=== PATIENT | male | born 1960 | race Caucasian/White ===

== ENCOUNTER → 2025-03-26 08:29 | Outpatient (REF) | payer BC, SELFPAY | LOC: RAD 08:29 | PROVIDERS: ATTENDING PHYSICIAN Surgery Vascular Surgery; FAMILY PHYSICIAN Internal Medicine | DX: I65.23 Occlusion and stenosis of bilateral carotid arteries (principal) | CPT/HCPCS: 70496; 70498; Q9967 ==

== ENCOUNTER 2025-05-11 06:44 | Inpatient (IN) | payer BC, SELFPAY ==
[2025-04-29 09:26] VITALS: BMI 22.5
[2025-04-29 09:38] LABS: Hematocrit 42.5 % (39.0-52.0); Hemoglobin 14.7 g/dL (13.0-18.0); Mean Corp Hgb Conc. 34.6 g/dL (33.0-37.0); Mean Corpuscular Volume 85.2 fL (80.0-94.0); Nucleated Red Blood Cells % 0 % (-); Platelet Count 293 10^3/uL (130-400); Red Cell Dist. Width 12.5 % (11.5-14.5)
[2025-04-29 09:44] LABS: INR 1.09; PT 14.6 Sec (11.4-14.6)
[2025-04-29 09:45] LABS: APTT 28.5 Sec (23.4-35.0)
[2025-04-29 10:02] LABS: Blood Urea Nitrogen 17 mg/dl (9-20); Calcium 9.4 mg/dl (8.4-10.2); Carbon Dioxide 28 mmol/L (22-30); Chloride 96 mmol/L (98-107); Estimated Creatinine Clearance 84 ml/min; Glucose 106 mg/dl (70-99); Potassium 4.6 mmol/L (3.5-5.1); Sodium 129 mmol/L (135-145); eGFR > 60.00
--- NOTE | 2025-05-05 14:36 | PTCARENOTE ---
Roshni in Dr. Floyd's office made aware of Sodium 129.
--- NOTE | 2025-05-06 16:17 | PTCARENOTE ---
Abn Na+, Dr. Vargas notified, no additional instructions received.
[2025-05-11] VITALS (7 sets, daily range): BP systolic 83–142; BP diastolic 50–79; BMI 23.1
[2025-05-11] MEDS: NSS 500 IV (07:20)
[2025-05-11] MEDS: BACTROBAN NASAL 1 GRAM NASAL (07:20)
[2025-05-11] MEDS: PERIDEX 0.12% ORAL RINSE 15 ML PO (07:21)
--- NOTE | 2025-05-11 08:45 | W.SUR.PREOP ---
Pre-Operative Surgical Note
-
I have examined this patient prior to the performance of the scheduled procedure.
The patient's condition is unchanged from the time of the current History and
Physical and the patient is able to undergo the scheduled procedure.
[2025-05-11 09:56] LABS: ACT-LR - POC 287 Seconds (116-155)
--- NOTE | 2025-05-11 10:42 | CON.INTV ---
Consultation
Consultation Request
Date/Time Consultation Requested: 05/11/2025 - 101
Date/Time Consultation Performed: 05/11/2025 - 1035
Requesting Provider: RINA Morillo
Performing Provider: Dr. Love
Reason for Consultation: R-CEA
Medical History
-
Chief Complaint: Elective right carotid endarterectomy
History of Present Illness:
64-year-old male active cigarette smoker with a past medical history of bilateral carotid artery stenosis who presents for elective right carotid endarterectomy. Patient known to vascular surgery service, with last visit on 04/11/2025 with
[place]. Recent CTA head/neck on 03/2025 showed high-grade stenosis within the right carotid bulb with >90% stenosis, and approximate 50% stenosis involving the origin of the left common carotid artery with prominent mediastinal lymph nodes.
Surgical intervention was discussed and the patient agreed to carotid endarterectomy. Today, patient underwent right carotid endarterectomy with patch angioplasty using bovine pericardium. There were no immediate complications, and he was
transferred to the ICU postoperatively for further care, with Napper Runner services consulted for additional management/recommendations.
PMHx: Bilateral carotid artery stenosis, hypertension, hyperlipidemia, anxiety, Bracken's disease
PSHx: Left shoulder surgery
Past Medical History
Past Medical History: Other (Above as per HPI)
Past Surgical History: Other (Above as per HPI)
Social History
Tobacco: Smoker (Smokes 0.5 PPD; started smoking at age 18)
Alcohol: None
Drug: None
Family History
Family History: Hypertension (Father + mother)
Allergies / Home Medications
Allergies
Allergy/AdvReac Type Severity Reaction Status Date / Time
hydromorphone (From Dilaudid) Allergy Unknown Rash Verified 05/11/25 14:20
Home Medications
�Medication �Instructions �Recorded �Confirmed �Last Taken �Type
Vitamin C 1 dose PO DAILY Supplement 04/27/25 05/11/25 05/10/25 08:00 History
Vitamin D (with calcium) 1 dose PO DAILY Supplement 04/27/25 05/11/25 05/10/25 08:00 History
aspirin 81 mg tablet 81 mg PO HS Blood Clot 04/27/25 05/11/25 05/09/25 22:00 History
Prevention/Tx
atorvastatin 40 mg tablet 40 mg PO HS High Cholesterol 04/27/25 05/11/25 05/10/25 22:00 History
buspirone 10 mg tablet 10 mg PO BID Mental Health/Anxiety 04/27/25 05/11/25 05/11/25 06:00 History
carvedilol 12.5 mg tablet 12.5 mg PO BID Heart 04/27/25 05/11/25 05/11/25 06:00 History
Disease/Condition
omeprazole 20 mg tablet,delayed 20 mg PO HS Gastrointestinal Issue 04/27/25 05/11/25 05/10/25 22:00 History
release
losartan 100 1 tab PO HS Blood Pressure 05/11/25 05/11/25 05/10/25 22:00 History
mg-hydrochlorothiazide 25 mg tablet
Review of Systems
-
History Source: Patient
All other systems: Negative unless noted
Vitals / Labs / Diagnostic Testing
Vital Signs
Temp Pulse Resp BP Pulse Ox
98 F 58 15 96/50 91
05/11/25 15:53 05/11/25 15:00 05/11/25 15:00 05/11/25 12:30 05/11/25 14:45
Lab Data
05/11/25 13:37
05/11/25 13:37
Laboratory Results
05/11/25
13:37
PT 16.0 H
INR 1.26
APTT 29.6
Diagnostic Testing:
Physical Exam
-
HEENT: Normocephalic, Anicteric and Other (Incision on right neck, closed with no purulence or exsanguination)
Cardiovascular: S1/S2 and Peripheral Edema (negative)
Respiratory: Clear, Wheeze (negative), Rales (negative) and Non-Labored Respirations
GI: Soft, Non Distended, Non Tender and Normal Bowel Sounds
Neurology: Awake, Alert and Tremors (negative)
Skin: Warm and Dry
General: Respiratory Distress (negative), Comfortable, Fever (negative) and Chills (negative)
Assessment
-
Assessment: 64-year-old male active cigarette smoker with a past medical history of bilateral carotid artery stenosis who presents for elective right carotid endarterectomy. Patient known to vascular surgery service, with last visit on 04/11/[address] Floyd. Recent CTA head/neck on 03/2025 showed high-grade stenosis within the right carotid bulb with >90% stenosis, and approximate 50% stenosis involving the origin of the left common carotid artery with prominent mediastinal lymph nodes.
Surgical intervention was discussed and the patient agreed to carotid endarterectomy. On 05/11/2025, patient underwent right carotid endarterectomy with patch angioplasty using bovine pericardium. There were no immediate complications, and he was
transferred to the ICU postoperatively for further care, with Napper Runner services consulted for additional management/recommendations.
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
Impression:
#High-grade asymptomatic right carotid artery stenosis s/p right carotid endarterectomy with patch angioplasty using bovine pericardium (POD #0)
#Mediastinal lymphadenopathy
#Leukocytosis (suspect reactive due to operation above)
#Chronic hyponatremia (sodium was 129 earlier this month on 04/29/2025; was 125 on 03/24/2025)
#Active tobacco smoker with >02-gpbi-jhrw history
#Mild paraseptal + centrilobular emphysema due to tobacco use
Plan:
Postoperative surgical intensive care unit monitoring
Supplemental oxygen as needed to maintain SpO2 >90-94%
prn nebulized bronchodilators
Incentive spirometry encouraged 10x per hour for at least 4 hrs a day
Aspiration precautions
Pain control
Neuro and vascular checks per protocol
Maintain MAP>65
Replete electrolytes with K>4, Mg>2
Maintain euglycemia with goal BG 140-180; check A1C
Vascular surgery following-correspondence and operative notes reviewed
Transfuse blood products as needed to keep Hb>7g/dL, and plt>50k (given post-operative status)
Patient has prominent mediastinal lymph nodes with unknown etiology. Suspect this is reactive. Recommend repeating CT chest with IV contrast as an outpatient to assess for persistence; may need EBUS-FNA if nodes increase in size
Also, given his age, >12-krir-tmli history and continued active cigarette use, he qualifies for annual LDCT chest imaging. This can be discussed as an outpatient.
Recommend outpatient pulmonary office follow-up, to discuss his enlarged mediastinal lymph nodes, discussed repeat imaging, to discuss his smoking use with lung cancer screening with annual LDCT chest, and to obtain PFTs to evaluate for obstructive
lung defect
DVT prophylaxis: HSQ
Early nutrition
Early mobilization
Critical care statement: A total of 39 minutes of critical care time was provided for this patient today. This includes management of unstable vital signs, evaluation of the patient at bedside, reviewing the patient's pertinent medical records
including radiographs, microbiology, laboratory evaluations, and discussion with primary team, consultants, pharmacy, nutrition, physical therapy, case management, charge nurse, critical care nursing, and respiratory therapy.
Data:
CT angio head & neck with/without IV contrast 03/26/2025:
1. High-grade stenosis within the right carotid bulb, measurements consistent with greater than 90% stenosis, best appreciated on sagittal images 23 and 24. Right internal carotid artery appears to remain patent.
2. Mild stenosis at the origin of the left common carotid artery, approximately 50%. Calcified left carotid bulb plaque, measurements consistent with approximately 50% stenosis.
3. Prominent mediastinal lymph nodes, measuring up to 1.3 cm in short axis dimension, of unknown etiology. Consider contrast-enhanced CT chest to evaluate for additional thoracic lymphadenopathy.
[2025-05-11 10:45] LABS: ACT-LR - POC 211 Seconds (116-155)
--- NOTE | 2025-05-11 11:01 | OR.RPT ---
Operative Report
Operative Report
Date of Operation: 05/11/2025
Pre Op Diagnosis: High-grade asymptomatic right carotid artery stenosis
Post Op Diagnosis: High-grade asymptomatic right carotid artery stenosis
Procedure: RIGHT carotid endarterectomy with patch angioplasty using bovine pericardium
Surgeon: Liban Floyd III, MD
Analysis Engineer: Leilani Holder MD PGY2
Anesthesia: General
Complications: None
History and Indications for Procedure: 64-year-old male with asymptomatic high-grade right carotid artery stenosis
Procedure in Detail: Mark Carr was correctly identified and placed supine on the operating table. After adequate induction of anesthesia the right neck was positioned, prepped and draped in the usual sterile fashion. Preoperative
antibiotics were administered. A time out procedure was performed with the nursing and anesthesia staff confirming the patients identity as well as the nature and laterality of the procedure.
The carotid bifurcation was marked with ultrasound at the beginning of the case. The incision was planned accordingly. An incision was made along the anterior border of the right sternocleidomastoid muscle. Electrocautery was used to divide the
subcutaneous tissue and platysma. The carotid sheath was entered with sharp dissection. The internal jugular vein was retracted laterally. The vagus nerve was identified and protected throughout the case. The common carotid artery was identified at
the base of this incision and carefully encircled with a vessel loop. The patient was systemically heparinized. The dissection was continued distally towards the carotid bifurcation. The facial vein was skeletonized, ligated and divided between ties
and clips. The proximal external carotid artery was encircled with a vessel loop. The distal internal carotid artery was encircled with a vessel loop at a soft spot on the artery beyond the plaque. The hypoglossal nerve was identified and protected.
The internal vessel loop was secured followed by the common and external. An arteriotomy was made on the distal common carotid artery with an 11-blade. This was extended proximally and distally with [place] scissors. The arteriotomy was extended
distally through the plaque to an area of normal appearing internal carotid artery. The distal vessel loop was replaced with a short tip hockey-stick type vascular clamp. An endarterectomy was performed with a Lorraine elevator in the standard
fashion. The proximal extent of the plaque was transected with scissors. The distal end of the plaque in the internal carotid artery was feathered with a very nice result. No distal intimal flap was identified. The plaque extending into the
external carotid artery was everted. Once the plaque was fully removed the endarterectomy plane was irrigated with heparinized saline and any loose fronds of tissue were removed. A pre-cut piece of bovine pericardium was sewn in place using a
running 6-0 Prolene suture. Prior to the completion of the patch the common carotid was allowed to forward bleed and the external was allowed to back bleed. The area under the patch was irrigated with heparinized saline to remove any potential
thrombus or debris. The anastomosis was completed.
The external vessel loop was released first, followed by the common and then the internal. There was an excellent pulse in the distal internal carotid artery. An excellent quality Doppler signal in the distal internal carotid artery was also
confirmed. The patch suture line was closely inspected for hemostasis and was achieved. Protamine was administered. Hemostasis was achieved in the wound bed. The wound was irrigated with saline solution.
The wound was then closed in layers. Sterile skin glue was applied. The patient awoke from anesthesia with no immediate neuro deficits and was taken to the PACU in stable condition.
Attestation: I was present and responsible for the entire procedure
Signed:
Liban Floyd III, MD
Vascular Surgery
[facility]
[2025-05-11] MEDS: LEVOPHED 250 IV (12:27)
[2025-05-11] MEDS: NSS 1000 IV (13:00)
--- NOTE | 2025-05-11 13:45 | PTCARENOTE ---
arrived in ICU via bed from PACU approx 1300, settled. art line zero and blanca. see admission assessment. neuro exam intact. R neck exofin intact, small amount bruising. constant movement all extrem, neck, pt reports as baseline, no distress.
aware of plans for the afternoon. family brought to room, updated. family initially upset about lack of updates but confirmed that vascular surgery team did update her. reassured that system is functioning appropriately and as expected. calmer,
visiting at bedside. urinal bedside, abd soft, no urge to void at this time. 12 lead repeated and labs drawn and sent per parameters.
[2025-05-11 13:58] LABS: Hematocrit 37.8 % (39.0-52.0); Hemoglobin 13.2 g/dL (13.0-18.0); Mean Corp Hgb Conc. 34.9 g/dL (33.0-37.0); Mean Corpuscular Volume 84.0 fL (80.0-94.0); Platelet Count 275 10^3/uL (130-400); Red Cell Dist. Width 12.2 % (11.5-14.5)
[2025-05-11 14:06] LABS: INR 1.26; PT 16.0 Sec (11.4-14.6)
[2025-05-11 14:07] LABS: APTT 29.6 Sec (23.4-35.0); Blood Urea Nitrogen 12 mg/dl (9-20); Calcium 8.4 mg/dl (8.4-10.2); Carbon Dioxide 22 mmol/L (22-30); Chloride 101 mmol/L (98-107); Estimated Creatinine Clearance 97 ml/min; Glucose 130 mg/dl (70-99); Potassium 3.8 mmol/L (3.5-5.1); Sodium 127 mmol/L (135-145); eGFR > 60.00
[2025-05-11] MEDS: HEPARIN 5000 UNITS SC (16:02)
--- NOTE | 2025-05-11 18:34 | PTCARENOTE ---
see levophed documentation and VS. Levophed restarted 2 mcg/min. family heading home. pt resting, watching TV, feeling well, no c/o, denies need for pain med, neuro exam unchanged.
--- NOTE | 2025-05-11 20:35 | PTCARENOTE ---
Pt is Aox3, VSS, NSR on monitor, on 2mcg of Levophed for MAP>65. Incision on right neck approximated, closed with surgical glue, and some ecchymosis.
[2025-05-11] MEDS: COREG PO (21:14)
[2025-05-11] MEDS: BUSPAR 10 MG PO (21:41)
[2025-05-11] MEDS: PROTONIX 40 MG PO (21:41)
[2025-05-11] MEDS: LIPITOR 40 MG PO (21:41)
[2025-05-11] MEDS: ASPIR LOW (ENTERIC COATED) 81 MG PO (21:41)
[2025-05-11] MEDS: COZAAR PO (21:44)
[2025-05-12] MEDS: NSS 1000 IV (00:03)
[2025-05-12] MEDS: HEPARIN 5000 UNITS SC ×2 (00:07→07:23)
[2025-05-12] MEDS: COZAAR 25 MG PO (00:12)
--- NOTE | 2025-05-12 00:14 | PTCARENOTE ---
BP medications initially held due to patient being on Levophed. Levophed has been off since 2099, SBP increasing, Losartan given.
[2025-05-12] MEDS: TYLENOL 650 MG PO (01:14)
[2025-05-12 04:05] VITALS: BP 170/83
[2025-05-12] MEDS: CARDENE 200 IV (04:10)
[2025-05-12 04:37] LABS: Hematocrit 35.1 % (39.0-52.0); Hemoglobin 12.1 g/dL (13.0-18.0); Mean Corp Hgb Conc. 34.5 g/dL (33.0-37.0); Mean Corpuscular Volume 84.6 fL (80.0-94.0); Platelet Count 244 10^3/uL (130-400); Red Cell Dist. Width 12.2 % (11.5-14.5)
[2025-05-12 04:57] LABS: Blood Urea Nitrogen 11 mg/dl (9-20); Calcium 8.3 mg/dl (8.4-10.2); Carbon Dioxide 23 mmol/L (22-30); Chloride 103 mmol/L (98-107); Estimated Creatinine Clearance 97 ml/min; Glucose 117 mg/dl (70-99); Magnesium 1.8 mg/dl (1.6-2.3); Potassium 4.2 mmol/L (3.5-5.1); Sodium 131 mmol/L (135-145); eGFR > 60.00
--- NOTE | 2025-05-12 05:33 | PTCARENOTE ---
Noreenene started for elevated blood pressures 170's.
[2025-05-12 06:00] VITALS: BMI 22.2
[2025-05-12] MEDS: VITAMIN C 250 MG PO (07:22)
[2025-05-12] MEDS: OSCAL CAL 500 500 MG PO (07:22)
[2025-05-12] MEDS: BUSPAR 10 MG PO (07:22)
[2025-05-12] MEDS: COREG 12.5 MG PO (07:22)
[2025-05-12] MEDS: VITAMIN D3 (cholecalciferol) 10 MCG PO (07:22)
[2025-05-12 07:30] VITALS: BP 112/62
[2025-05-12 08:11] LABS: Glycohemoglobin (HgbA1c) 5.6 % (4.0-5.6)
--- NOTE | 2025-05-12 08:22 | W.PN.INTV ---
Today's Communication / Plan
Recommendations
Up OOB as tolerated
Pain control
Encouraged incentive spirometer
Outpatient pulmonary office follow-up given the mediastinal lymphadenopathy
Repeat CT chest as an outpatient
Patient is being planned to be discharged home today. No additional recommendations at this time. Vice Chairman/Pulmonary service will now sign off. Please reconsult if there are any additional questions/concerns, or if patient's respiratory status
deteriorates.
Assessment
-
Assessment: 64-year-old male active cigarette smoker with a past medical history of bilateral carotid artery stenosis who presents for elective right carotid endarterectomy. Patient known to vascular surgery service, with last visit on 04/11/[address] Floyd. Recent CTA head/neck on 03/2025 showed high-grade stenosis within the right carotid bulb with >90% stenosis, and approximate 50% stenosis involving the origin of the left common carotid artery with prominent mediastinal lymph nodes.
Surgical intervention was discussed and the patient agreed to carotid endarterectomy. On 05/11/2025, patient underwent right carotid endarterectomy with patch angioplasty using bovine pericardium. There were no immediate complications, and he was
transferred to the ICU postoperatively for further care, with Vice Chairman services consulted for additional management/recommendations.
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
Impression:
#High-grade asymptomatic right carotid artery stenosis s/p right carotid endarterectomy with patch angioplasty using bovine pericardium (POD #1)
#Mediastinal lymphadenopathy
#Leukocytosis (suspect reactive due to operation above)
#Chronic hyponatremia (sodium was 129 earlier this month on 04/29/2025; was 125 on 03/24/2025)
#Active tobacco smoker with >26-kruj-iqjd history
#Mild paraseptal + centrilobular emphysema due to tobacco use
Plan:
Postoperative surgical intensive care unit monitoring
Supplemental oxygen as needed to maintain SpO2 >90-94%
prn nebulized bronchodilators
Incentive spirometry encouraged 10x per hour for at least 4 hrs a day
Aspiration precautions
Pain control
Neuro and vascular checks per protocol
Maintain MAP>65
Replete electrolytes with K>4, Mg>2
Maintain euglycemia with goal BG 140-180; check A1C
Vascular surgery following-correspondence and operative notes reviewed
Transfuse blood products as needed to keep Hb>7g/dL, and plt>50k (given post-operative status)
Patient has prominent mediastinal lymph nodes with unknown etiology. Suspect this is reactive. Recommend repeating CT chest with IV contrast as an outpatient to assess for persistence; may need EBUS-FNA if nodes increase in size
Also, given his age, >10-wqks-rrox history and continued active cigarette use, he qualifies for annual LDCT chest imaging. This can be discussed as an outpatient.
Recommend outpatient pulmonary office follow-up, to discuss his enlarged mediastinal lymph nodes, discussed repeat imaging, to discuss his smoking use with lung cancer screening with annual LDCT chest, and to obtain PFTs to evaluate for obstructive
lung defect
DVT prophylaxis: HSQ
Early nutrition
Early mobilization
Patient is being planned to be discharged home today. No additional recommendations at this time. Vice Chairman/Pulmonary service will now sign off. Thank you for allowing us to be involved in the care of this patient. Please reconsult if there
are any additional questions/concerns, or if patient's respiratory status deteriorates.
Data:
CT angio head & neck with/without IV contrast 03/26/2025:
1. High-grade stenosis within the right carotid bulb, measurements consistent with greater than 90% stenosis, best appreciated on sagittal images 23 and 24. Right internal carotid artery appears to remain patent.
2. Mild stenosis at the origin of the left common carotid artery, approximately 50%. Calcified left carotid bulb plaque, measurements consistent with approximately 50% stenosis.
3. Prominent mediastinal lymph nodes, measuring up to 1.3 cm in short axis dimension, of unknown etiology. Consider contrast-enhanced CT chest to evaluate for additional thoracic lymphadenopathy.
Total time spent today was 42 minutes for this encounter. Time includes reviewing laboratory test/imaging results, reviewing pertinent medical records, obtaining and reviewing medical history, performing an appropriate exam, ordering medications,
tests and procedures. Time also includes documentation of this encounter, coordinating patient care and communicating with other healthcare professionals. Total time does not include separately billed tests performed on this date of service.
Subjective Dataa
Subjective Data
Date of Service:
Date of Service: May 12, 2025
Chief Complaint: Vice Chairman Follow Up
Subjective:
Patient was seen and evaluated this morning. Resting in bed in no acute distress. Heart rate 58, BP 113/59. Planning to go home today.
Review of Systems
General: Other (Negative unless mentioned above)
Objective Data
Data Reviewed
Vital Signs / I&O / Oxygen:
Vital Signs
Temp Pulse Resp BP Pulse Ox
98.5 F 61 11 118/69 91
05/12/25 07:24 05/12/25 10:30 05/12/25 08:45 05/12/25 08:25 05/12/25 08:45
Intake and Output
05/11/25 05/12/25 05/13/25
06:59 06:59 06:59
Intake Total 2510.7 / 2615.7 345 / 345
Output Total 3175 / 3475 800 / 800
Balance -664.3 / -859.3 -455 / -455
SaO2 91
Physical Exam
General: Respiratory Distress (negative), Comfortable, Chills (negative) and Sweats (negative)
HEENT: Normocephalic (Negative unless mentioned above)
Cardiovascular: S1-S2 and Peripheral Edema (negative)
Respiratory: Clear, Wheeze (negative) and Crackles (negative)
GI: Soft, Non Distended, Non Tender and Normal Bowel Sounds
Neurology: AO x 3 and Tremors (negative)
Skin: Warm, Dry, Cyanosis (negative) and Jaundice (negative)
Labs/Micro/Reports
Lab Data
05/12/25 04:20
05/12/25 04:20
Laboratory Results
05/11/25
13:37
PT 16.0 H
INR 1.26
APTT 29.6
[2025-05-12 08:25] VITALS: BP 118/69
--- NOTE | 2025-05-12 08:47 | W.PN.VS ---
Today's Communication / Plan
-
Seen and assessed with Dr Floyd
Assessment/Plan
-
POD 1 R CEA
Plan:
DC stella
DC IVF
Increase diet
PO meds
OOB/ambulate
Possible dc later today
Subjective Data
-
Date of Service: May 12, 2025
Pt seen at bedside this am with Dr Floyd. Pt offers no complaints at this time. No events overnight. Cardene off at this time.
Objective Data
-
Vital Signs
Temp Pulse Resp BP Pulse Ox
98.5 F 59 13 112/62 90
05/12/25 07:24 05/12/25 07:45 05/12/25 07:45 05/12/25 07:30 05/12/25 07:57
Intake and Output
05/11/25 05/12/25 05/13/25
06:59 06:59 06:59
Intake Total 2510.7 / 2615.7 105 / 105
Output Total 3175 / 3475 500 / 500
Balance -664.3 / -859.3 -395 / -395
Intake:
Oral fluids 840 / 840
IV fluids (Total) 1670.7 / 1775.7 105 / 105
Cardene 100 / 125
Nss 1,000 ml @ 80 mls/hr IV . 1440 / 1520 80 / 80
[id number] [facility] Rx#:[id number]
Nss 500 ml @ 40 mls/hr IV . 50 / 50
[id number] [facility] Rx#:[id number]
levophed 80.7 / 80.7
Output:
Urine, Voided 3175 / 3475 500 / 500
Lab Results
05/12/25 04:20
05/12/25 04:20
Calcium 8.3 mg/dl (8.4-10.2) L 05/12/25 04:20
Phosphorus 3.3 mg/dl (2.5-4.5) 05/12/25 04:20
Magnesium 1.8 mg/dl (1.6-2.3) 05/12/25 04:20
Physical Exam
-
AAOx3
No tachypnea
No tachycardia
Abd soft
Neck site c/d/i, soft, flat, well approximated
Moves all extremities
Tongue midline
--- NOTE | 2025-05-12 09:07 | PTCARENOTE ---
Pt AOx3, neuro checks wnl. VSS. NSR Hr 70's. L A-line dc'd. Pressure held, dressing applied. Pt ambulated, tolerated well. at bedside, questions answered. Will continue to monitor.
[2025-05-12 10:34] VITALS: BP 129/66
[2025-05-12 11:00] VITALS: BP 113/69
[2025-05-12 12:00] VITALS: BP 137/86
--- NOTE | 2025-05-12 12:02 | CM ---
Initial assessment completed with patient with in room. Patient lives with and 30 y/o son in a 2 story split level home with basement, B/B on upper level, 1/2 bath on main level, no steps to enter. 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
and ambulation, drives. In the home is DME from relative: SPC, w/ch, RW, SC and hospital bed. Patient does not use any DME. No in-home services. No VA benefits. No psychiatric hospitalizations. Discharge POC: Anticipate home with no needs.
will transport home.
--- NOTE | 2025-05-12 12:10 | CM ---
Patient has been medically cleared for discharge to home with no additional skilled services. will transport home.
== END 2025-05-12 12:35 | disposition home or self-care (01) | DRG 38 ==
LOC: ICU 06:44
PROVIDERS: Nurse Practitioner Acute Care; ADMITTING PHYSICIAN Surgery Vascular Surgery; CONSULT PHYSICIAN Internal Medicine Critical Care Medicine; PRIMARYCARE PHYSICIAN Internal Medicine
PROC: 03CK0ZZ Extirpation of Matter from Right Internal Carotid Artery, Open Approach (ICD-10-PCS; 2025-05-11)
PROC: 03UK0KZ Supplement Right Internal Carotid Artery with Nonautologous Tissue Substitute, Open Approach (ICD-10-PCS; 2025-05-11)
DX: I65.21 Occlusion and stenosis of right carotid artery (principal); E87.1 Hypo-osmolality and hyponatremia; G10 Huntington's disease; F41.9 Anxiety disorder, unspecified; I10 Essential (primary) hypertension; E78.00 Pure hypercholesterolemia, unspecified; F17.210 Nicotine dependence, cigarettes, uncomplicated; D72.829 Elevated white blood cell count, unspecified; J43.2 Centrilobular emphysema; R59.0 Localized enlarged lymph nodes; Z82.49 Family history of ischemic heart disease and other diseases of the circulatory system; Z88.5 Allergy status to narcotic agent; Z79.899 Other long term (current) drug therapy
CPT/HCPCS: 35301; 36415; 71046; 80048; 83036; 83735; 84100; 85025; 85027; 85610; 85730; 86850; 86900; 86901; 88304; 88311; 93005; 95938; 95941; 95955

== ENCOUNTER 2025-05-17 17:42 | Emergency (ER) | payer BC, SELFPAY ==
[2025-05-17 17:47] VITALS: BP 195/110
--- NOTE | 2025-05-17 18:22 | ED.GENMED ---
History of Present Illness
General
Chief Complaint: Headache
Source: patient
Exam Limitations: none
Time Seen by Provider: 05/17/25 18:04
History of Present Illness
History of Present Illness:
See MDM
Past History
Past History
ED Past Medical History: Hypercholesterolemia, Psychiatric and Other
ED Past Surgical History: Other (R carotid endarterectomy )
Social History
Tobacco: Former smoker
Alcohol: None
Phy Exam
Physical Exam
Physical Exam:
See MDM
Course
Orders/Labs/Results
Orders:
Orders
05/17/25 18:17
0.9% Sodium Chloride 1000 ml [Nss] 1,000 ml IV BOLUS
Butalb/Acetaminophen/Caffeine [Fioricet] 1 tab PO NOW STA
05/17/25 18:32
CT Angio Neck W/Wo Iv Contrast [CT Neck Angio W/wo Iv Contrast] Urgent
Comment:
Reason For Exam: neck and headache, Recent R endarterectomy
05/17/25 18:34
Complete Blood Count/With Diff Urgent
05/17/25 18:35
Comprehensive Metabolic Panel Urgent
Abnormal Lab Results
05/17/25 05/17/25
18:34 18:35
RBC 4.25 L 10^6/uL
(4.70-6.10)
Hgb 12.7 L g/dL
(13.0-18.0)
Hct 37.3 L %
(39.0-52.0)
Absolute Monos (auto) 1.1 H 10^3/uL
(0.1-0.6)
Monocytes % 11.2 H %
(1.7-9.3)
Sodium 128 L mmol/L
(135-145)
Chloride 97 L mmol/L
(98-107)
BUN 27 H mg/dl
(9-20)
Glucose 110 H mg/dl
(70-99)
ALT 83 H U/L
(0-50)
05/17/25 18:34
05/17/25 18:35
Vital Signs
Initial and Last Documented VS:
Initial Vital Signs
Temp Pulse Resp BP Pulse Ox
98.6 F 85 16 195/110 99
05/17/25 17:47 05/17/25 17:47 05/17/25 17:47 05/17/25 17:47 05/17/25 17:47
Last Documented Vital Signs
Temp Pulse Resp BP Pulse Ox
98.6 F 80 17 169/84 98
05/17/25 17:47 05/17/25 20:00 05/17/25 20:08 05/17/25 20:00 05/17/25 20:00
MDM/Problems Addressed
Differential Diagnosis Includes:
Note:
CHIEF COMPLAINT(S)
Headache
HISTORY OF PRESENT ILLNESS
The patient is a 64-year-old male with a recent history of carotid artery surgery performed a few days ago. Post-operatively, the patient reports experiencing headaches that alternate between mild and severe intensities. The headaches began last
night, with pain escalating from a rating of 1 to 8 or 9 on a pain scale, and currently stabilizing at a 2. The patient describes the pain as occurring on the same side as the recent surgery. The headaches are not accompanied by blurred vision. The
patient does not have a history of migraines but mentioned quitting smoking 10 days ago, which may have contributed to the symptoms. The patient is also stopped consuming caffeine. Rhvp-eev-ecjccct Tylenol (acetaminophen) was used with partial
relief of symptoms.
PAST MEDICAL AND SURGICAL HISTORY
The patient recently underwent carotid artery surgery.
SOCIAL DETERMINANTS OF HEALTH
The patient expressed a potential impact on his symptoms from quitting smoking and decreased caffeine consumption post-surgery.
PHYSICAL EXAM
General: Alert, no acute distress.
Skin: Warm, dry.
Head: Normocephalic, atraumatic
Neck: Appears supple, trachea midline. Right carotid surgery incision clean and intact
Eyes, Ears, Nose, Mouth, and Throat: Moist mucous membranes. Pupils equal and reactive
Cardiovascular: No signs of cyanosis
Respiratory: Respirations are non-labored.
Abdomen: Non-distended
Musculoskeletal: No deformities
Neurological: Intermittent bilaterally upper extremity tremors
Psychiatric: Cooperative, appropriate mood and affect.
PLAN
The plan includes acquiring a CT scan to rule out post-surgical complications. The patient will be administered fluids and prescribed Fioricet (butalbital, acetaminophen, and caffeine) for migraine-like symptoms. If effective, a prescription for
Fioricet will be considered.
DIFFERENTIAL DIAGNOSIS
The Differential Diagnosis includes, in no particular order and is not limited to:
- Tension headache
- Migraine
- Post-surgical pain or complication
- Caffeine withdrawal
- Nicotine withdrawal
- Medication overuse headache
- Intracranial hemorrhage
- Carotid artery dissection
- Cerebral vasospasm
- Hypotension-related headache
SUMMARY OF ENCOUNTER
The patient presented to the emergency department with new-onset headaches post-carotid artery surgery. Due to the risk associated with recent surgery, a CT scan will be performed to rule out any complications. The patient�s symptoms were assessed
possibly to be related to nicotine and caffeine withdrawal following lifestyle changes after surgery. Symptomatic treatment with Fioricet will be trialed for headache management.
DISPOSITION
Plan for discharge pending test results unless complications are noted.
EMERGENCY TREATMENTS ADMINISTERED
Trial dose of Fioricet for headache relief.
MEDICATION RECONCILIATION
Administered Fioricet in the emergency department. Prescription considered if effective.
MEDICAL DECISION MAKING
Number and Complexity of Problems Addressed: Chronic conditions affecting care include recent carotid artery surgery.
- Complexity of Data Reviewed:
- The differential diagnosis includes a wide range of possible causes for the patients headaches, from tension headaches due solely to withdrawal symptoms to more severe complications like intracranial hemorrhage or carotid artery dissection.
- Data:
Category 1:
- CT scan considered to rule out post-surgical complications.
Category 2:
- No additional historians needed; all information gathered from the patient.
Category 3:
- Discussion of management with patient regarding causes for headache and rationale for ordering a CT scan.
Risk:
Prescription medication was prescribed for symptomatic relief. Consideration of admission/escalation was evaluated but deemed unnecessary given stable presentation and lack of acute findings at the time of exam.
DIAGNOSIS
- Headache, NOS (R51)
- Recent Carotid Endarterectomy (Z98.89)
- Nicotine dependence, uncomplicated (F17.200)
- Caffeine withdrawal (F15.230)
SUMMARY OF ENCOUNTER
The patient, a 64-year-old male, presented to the emergency department with a headache likely related to recent cessation of tobacco and caffeine following his carotid endarterectomy. A CT angiogram of the neck was performed, yielding negative
results for post-surgical complications such as carotid artery dissection. The patient reported feeling much better after receiving Fioricet (butalbital, acetaminophen, and caffeine) and expressed comfort in going home. Return precautions and
follow-up with his vascular surgeon and primary care provider were discussed.
DISPOSITION
Discharge.
PLAN
Consider symptomatic treatment for headaches, focusing on the impact of tobacco and caffeine withdrawal, and evaluate follow-up with vascular surgery and primary care.
INDEPENDENT REVIEW OF LABS AND INTERPRETATION OF TESTS
My independent interpretation of the CT angiogram of the neck is negative for complications.
PATIENT EDUCATION AND COUNSELING
The patient was informed about potential triggers for headaches, including tobacco and caffeine withdrawal, and was advised on return precautions. The importance of follow-up with his vascular surgeon and primary care physician was discussed.
FOLLOW-UP INSTRUCTIONS
The patient is to follow up with his vascular surgeon and primary care provider.
MEDICATION RECONCILIATION
Administered Fioricet in the emergency department.
MEDICAL DECISION MAKING
- Chronic conditions affecting care include recent carotid artery surgery and cessation of tobacco and caffeine. Differential diagnosis considerations include tension headache, migraine, post-surgical pain or complication, caffeine withdrawal,
nicotine withdrawal, medication overuse headache, intracranial hemorrhage, carotid artery dissection, cerebral vasospasm, hypotension-related headache.
- Data:
- Category 1: A CT angiogram was ordered and reviewed with a negative result for complications.
- Category 3: Management and potential causes for headaches were discussed with the patient, including the negative CT angiogram findings and the role of recent lifestyle changes.
- Risk: Consideration of Admission/Observation: Escalation of care including admission/observation was considered given the complexity and risk of the patients presenting complaint, exam findings, and underlying comorbidities. However, ultimately,
the patient is considered safe for outpatient management with close follow-up. Reasoning includes reassuring work-up results, well-controlled symptoms upon reevaluation, stable reexamination, stable vitals, patient agreement with discharge, and
reliability for follow-up.
DIAGNOSIS
- Headache, NOS (R51)
- Recent Carotid Endarterectomy (Z98.89)
- Nicotine dependence, uncomplicated (F17.200)
- Caffeine withdrawal (F15.230)
*Pulse Oximetry
SaO2: 99
Oxygen Mode of Delivery: Room air
Patient hypoxic: no
*Critical Care Note
Total Time (30-74mins, 75-104mins- exclusive of procedures): Not Applicable
ED Attending Note
-
Portions of this chart may have been created with voice recognition software.� Occasional wrong word or��sound alike� substitutions may have occurred due to the inherent limitations of voice recognition software.
Discharge Plan
Departure
Patient Disposition: Home (Routine Discharge)
Date of Disposition: 05/17/25
Time of Disposition: 21:26
Patient with high blood pressure during this ER visit?: Yes
Discharge Problem:
Migraine
Instructions: Migraines (DC), BLOOD PRESSURE
Prescriptions:
New
yqxidkkdhu-cwpiiahrpybel-ppvy [Fioricet] 50-300-40 mg capsule
1 cap PO BIDPRN PRN (Reason: headache) Qty: 10 0RF
No Action
atorvastatin 40 mg Tablet
40 mg PO HS
carvedilol 12.5 mg Tablet
12.5 mg PO BID
buspirone 10 mg Tablet
10 mg PO BID
aspirin 81 mg Tablet
81 mg PO HS
omeprazole 20 mg Tablet,Delayed Release (Dr/Ec)
20 mg PO HS
Vitamin C
1 dose PO DAILY
Vitamin D (with calcium)
1 dose PO DAILY
losartan-hydrochlorothiazide 100-25 mg Tablet
1 tab PO HS
Referrals:
Shelly Willett DO [Family Provider, Internal Medicine]
Activity Restrictions/Additional Instructions:
Please return for any worsening symptoms.
You may return at any time if you have further concerns.
Please follow up with your doctor at the first available appointment, preferably this week.
Thank you for choosing [facility].
Interventions
Interventions:
*Risk Screen - Suicide Last Done: 05/17/25 17:47
*General Assessment Last Done: 05/17/25 17:47
*Neglect/Abuse Screening Last Done: 05/17/25 17:47
*ED COVID-19 Vaccine History Last Done: 05/17/25 18:48
*ED Influenza Vaccine History Last Done: 05/17/25 18:48
ED- Neurological Assessment Last Done: 05/17/25 20:08
Discharge Date and Time
Print Language: AMHARIC
[2025-05-17] MEDS: FIORICET 1 TAB PO (18:24)
[2025-05-17] MEDS: NSS 1000 IV (18:29)
[2025-05-17 18:33] VITALS: BMI 22.4
[2025-05-17 18:42] LABS: Hematocrit 37.3 % (39.0-52.0); Hemoglobin 12.7 g/dL (13.0-18.0); Mean Corp Hgb Conc. 34.0 g/dL (33.0-37.0); Mean Corpuscular Volume 87.8 fL (80.0-94.0); Nucleated Red Blood Cells % 0 % (-); Platelet Count 284 10^3/uL (130-400); Red Cell Dist. Width 12.2 % (11.5-14.5)
[2025-05-17 19:00] VITALS: BP 154/77
[2025-05-17 19:06] LABS: ALT (SGPT) 83 U/L (0-50); AST (SGOT) 45 U/L (17-59); Albumin 3.9 g/dl (3.5-5.0); Alkaline Phosphatase 48 U/L (38-126); Blood Urea Nitrogen 27 mg/dl (9-20); Calcium 8.7 mg/dl (8.4-10.2); Carbon Dioxide 25 mmol/L (22-30); Chloride 97 mmol/L (98-107); Estimated Creatinine Clearance 77 ml/min; Glucose 110 mg/dl (70-99); Potassium 3.9 mmol/L (3.5-5.1); Sodium 128 mmol/L (135-145); Total Protein 6.8 g/dl (6.3-8.2); eGFR > 60.00
[2025-05-17 20:00] VITALS: BP 169/84
[2025-05-17 21:00] VITALS: BP 155/81
== END 2025-05-17 21:43 | disposition home or self-care (01) ==
LOC: EMR 17:42
PROVIDERS: EMERGENCY PHYSICIAN Student in an Organized Health Care Education/Training Program; FAMILY PHYSICIAN Internal Medicine
DX: G43.909 Migraine, unspecified, not intractable, without status migrainosus (principal); R03.0 Elevated blood-pressure reading, without diagnosis of hypertension; E78.00 Pure hypercholesterolemia, unspecified; Z87.891 Personal history of nicotine dependence
CPT/HCPCS: 99284; 96360; 70498; 80053; 85025; Q9967

== ENCOUNTER 2025-05-23 16:17 | Observation (INO) | payer BC, MEDICARE, SELFPAY ==
[2025-05-23 13:06] VITALS: BP 120/65
--- NOTE | 2025-05-23 13:14 | ED.CVA ---
History of Present Illness
General
Chief Complaint: CVA/TIA Symptoms
Time Seen by Provider: 05/23/25 13:14
Onset of Stroke Symptoms
Onset of symptoms known: No
Time pt last seen normal is known: No
History of Present Illness
History of Present Illness:
FOCUSED PAST MEDICAL HISTORY
- Gonzales's
REVIEW OF OLD RECORDS
-the patient had high-grade asymptomatic right carotid artery stenosis and had right CEA with patch angioplasty with Dr. Floyd 05/11/2025
Note:
CHIEF COMPLAINT(S)
Dizziness, left arm weakness, and difficulty walking.
HISTORY OF PRESENT ILLNESS
The patient is a 64-year-old male with a recent history of a carotid endarterectomy performed 12 days ago due to significant carotid artery stenosis detected via ultrasound. The patient presents with new neurological symptoms that began
approximately two days ago. Specifically, he reports dizziness that worsens at night, along with weakness of the left arm, described as 'not being able to really use it well,' and difficulty with ambulation. He noted these symptoms starting the
morning prior to the visit, persisting intermittently. The patient reported that the dizziness began last night and has since improved. He is currently not experiencing active dizziness but reports that it has fluctuated.
The patient was seen last Sunday for severe headaches and believes it may be related to Excedrin Migraine, as he began experiencing neurological symptoms after taking the medication. He initially took Excedrin Migraine and then switched to taking
Fioricet, which was prescribed during a prior visit for his headaches. He is currently taking baby aspirin nightly but does not take other anticoagulants, such as apixaban or rivaroxaban.
Several days after he had the CEA, developed HAs - was started on Fioricet then Excedrin. He is here today due to LUE and LLE clumsiness intermittently for past 24 hours. On aspirin. He tells me that when he was in the shower, he couldn't get his
arm high enough to wash his hair and he had trouble walking.
NEUROLOGICAL EXAM
On examination, the patient was able to perform vbwwmt-dj-zxkk testing without significant deficits. However, subjective weakness of the left arm was noted without measurable deficit upon initial presentation. The patient�s left-sided weakness and
difficulty with leg movement were suggestive of potential post-surgical complications such as embolic phenomena following his recent carotid procedure.
ADDITIONAL HISTORY OBTAINED FROM SOURCES OTHER THAN THE PATIENT
The patients spouse reported that the weakness in the left arm started yesterday morning and has been intermittently present since. She also mentioned that the patient experienced dizziness mainly at night over the last two nights.
CHRONIC MEDICAL CONDITIONS SIGNIFICANTLY AFFECTING CARE
History of carotid artery stenosis, status post carotid endarterectomy.
MEDICATIONS
- Baby aspirin nightly.
- Excedrin Migraine (discontinued due to potential side effects).
- Fioricet, previously prescribed for headaches.
REVIEW OF SYSTEMS
- Neurological: Reports of dizziness and weakness in the left arm; difficulty with walking.
- Musculoskeletal: Subjective weakness in the left arm and difficulty ambulating.
PHYSICAL EXAM
General: Alert, no acute distress.
Neurological: Alert and oriented to person, place, time, and situation. Symmetrical strength tested on both upper and lower extremities; no focal neurological deficit noted. Some intermittent choreoathetoid movements noted (history of
Gonzales's), no coordination deficits.
- HEENT: Moist oral mucosa
- Cardiovascular: No murmurs, normal heart rate, regular rhythm, No chest wall tenderness
- Pulmonary: No respiratory distress, breath sounds are clear and equal
- Abdomen: Soft with no peritoneal signs, no tenderness
- Psychiatric: Appropriate mental status, normal insight and judgement
- Extremities: Nontender, no edema, moves all extremities equally
- Skin: No rash, no lesions
Musculoskeletal: Normal range of motion; subjective weakness of the left arm reported.
Psychiatric: Appears slightly confused at times
PROBLEM LIST
- Acute: Neurological symptoms (dizziness, left arm weakness, difficulty walking).
- Chronic: Carotid artery stenosis status post carotid endarterectomy.
PLAN
A CT scan of the head is planned to evaluate the cause of the new neurological symptoms. Communication with a neurologist will be initiated for further evaluation and management. The patients medications will be reviewed to assess their potential
contribution to symptoms.
DIFFERENTIAL DIAGNOSIS
The Differential Diagnosis includes, in no particular order and is not limited to:
1. Transient Ischemic Attack (TIA)
2. Postoperative complications following carotid endarterectomy (e.g., embolism)
3. Stroke
4. Medication-induced symptoms
5. Vertigo
6. Labyrinthitis
7. Electrolyte imbalance
8. Anxiety or stress-related manifestation
9. Peripheral neuropathy
10. Musculoskeletal strain or injury
RADIOLOGY
- CT brain shows no acute abnormality, CTA head shows no LVO, CTA shows expected postop changes without significant residual stenosis on the right
EKG
- Sinus 57, no acute ST abnormality, no change from 05/11/2025
LABS
- CBC unremarkable, chemistries unremarkable
UPDATE
-SUMMARY OF ENCOUNTER
The patient, a 64-year-old male with a recent history of carotid endarterectomy and diagnosed with Huntingtons disease five years ago, presented to the emergency department with dizziness, left arm weakness, and difficulty walking. A CT scan of the
brain did not reveal any obvious acute findings, though a final read by the radiologist is pending. After consultation with a neurologist, it was recommended that the patient be admitted for further evaluation and management of the new neurological
symptoms.
DISPOSITION
Admit.
MANAGEMENT OF THE PATIENTS CARE WAS DISCUSSED WITH
I consulted with a neurologist regarding the patients new neurological symptoms following carotid endarterectomy, and it was determined that hospital admission was necessary for further evaluation. A hospitalist will also be involved in the patients
ongoing care.
INDEPENDENT REVIEW OF LABS AND INTERPRETATION OF TESTS
- My independent interpretation of the CT scan of the brain does not reveal any obvious acute findings, but final radiologist interpretation is pending.
PATIENT EDUCATION AND COUNSELING
The patient and family were informed about the need for further evaluation in the hospital to understand the cause of the new neurological symptoms. The role of the neurologist and hospitalist in his care was discussed.
MEDICATION RECONCILIATION
- Current medications include baby aspirin taken nightly and Fioricet for headaches. Excedrin Migraine was previously used but discontinued due to potential side effects.
MEDICAL DECISION MAKING
- Number and Complexity of Problems Addressed: Chronic conditions affecting care include carotid artery stenosis status post carotid endarterectomy and Huntingtons disease. Differential diagnosis includes transient ischemic attack (TIA),
postoperative complications following carotid endarterectomy, stroke, medication-induced symptoms, vertigo, labyrinthitis, electrolyte imbalance, anxiety or stress-related manifestation, peripheral neuropathy, and musculoskeletal strain or injury.
- Data:
- Category 2: Input from independent historian is noted as clinical information was obtained from the patient�s spouse regarding the onset and intermittent nature of the symptoms.
- Category 3: I discussed the management of the patients care with a neurologist who recommended hospital admission.
DIAGNOSIS
1. Neurological symptoms post-carotid endarterectomy
2. Huntingtons disease (G10 - Huntingtons disease).
Past History
Past History
ED Past Medical History: Hypercholesterolemia, Psychiatric and Other
ED Past Surgical History: Other (R carotid endarterectomy )
Social History
Tobacco: Former smoker
Alcohol: None
Phy Exam
Physical Exam
Physical Exam:
See HPI
Course
Orders/Labs/Results
Orders:
Orders
05/23/25 13:40
Complete Blood Count/With Diff Urgent
Comprehensive Metabolic Panel Urgent
05/23/25 14:01
Electrocardiogram (*1) Urgent
Reason for Study: TIA/Stroke
EKG- Treatment ONCE
05/23/25 14:16
Consult Neurology [NEUROLOGY CONSULT] Urgent
Consulting Provider: Wily Valadez
Was physician already notified: Yes
Reason for consult: L weak after R CEA
05/23/25 14:17
CT Head & Neck Angio W/wo IV Urgent
Comment:
Reason For Exam: L weak after R CEA
Abnormal Lab Results
05/23/25
13:40
RBC 4.23 L 10^6/uL
(4.70-6.10)
Hgb 12.9 L g/dL
(13.0-18.0)
Hct 37.4 L %
(39.0-52.0)
Absolute Monos (auto) 0.8 H 10^3/uL
(0.1-0.6)
Monocytes % 10.4 H %
(1.7-9.3)
Sodium 127 L mmol/L
(135-145)
Chloride 92 L mmol/L
(98-107)
Glucose 121 H mg/dl
(70-99)
05/23/25 13:40
05/23/25 13:40
Vital Signs
Initial and Last Documented VS:
Initial Vital Signs
Temp Pulse Resp BP Pulse Ox
36.9 C 70 16 120/65 98
05/23/25 13:06 05/23/25 13:06 05/23/25 13:06 05/23/25 13:06 05/23/25 13:06
Last Documented Vital Signs
Temp Pulse Resp BP Pulse Ox
36.9 C 66 24 121/64 97
05/23/25 13:06 05/23/25 14:30 05/23/25 14:30 05/23/25 14:00 05/23/25 14:30
*Pulse Oximetry
SaO2: 98
Oxygen Mode of Delivery: Room air
Patient hypoxic: no
*Critical Care Note
Total Time (30-74mins, 75-104mins- exclusive of procedures): Not Applicable
ED Attending Note
-
Portions of this chart may have been created with voice recognition software.� Occasional wrong word or��sound alike� substitutions may have occurred due to the inherent limitations of voice recognition software.
Discharge Plan
Departure
Prescriptions:
No Action
atorvastatin 40 mg Tablet
40 mg PO HS
carvedilol 12.5 mg Tablet
12.5 mg PO BID
buspirone 10 mg Tablet
10 mg PO BID
aspirin 81 mg Tablet
81 mg PO HS
omeprazole 20 mg Tablet,Delayed Release (Dr/Ec)
20 mg PO HS
zimakbuqik-lakquvplqcxzr-mczd [Fioricet] 50-300-40 mg capsule
1 cap PO BIDPRN PRN (Reason: headache) Qty: 10 0RF
losartan 25 mg Tablet
25 mg PO DAILY
Referrals:
Shelly Willett DO [Family Provider, Internal Medicine]
Interventions
Interventions:
*Risk Screen - Suicide Last Done: 05/23/25 13:06
*General Assessment Last Done: 05/23/25 13:06
*Neglect/Abuse Screening Last Done: 05/23/25 13:28
*ED- Fall Risk Assessment Last Done: 05/23/25 13:06
*ED COVID-19 Vaccine History Last Done: 05/23/25 13:06
*ED Influenza Vaccine History Last Done: 05/23/25 13:06
ED- Cardiac Assessment Last Done: 05/23/25 13:28
ED- Neurological Assessment Last Done: 05/23/25 13:28
ED- Pulmonary Assessment Last Done: 05/23/25 13:28
ED Swallowing Screen Last Done: 05/23/25 13:28
Discharge Date and Time
Print Language: TANZANIAN
[2025-05-23 13:34] VITALS: BP 158/69
[2025-05-23 13:54] LABS: Hematocrit 37.4 % (39.0-52.0); Hemoglobin 12.9 g/dL (13.0-18.0); Mean Corp Hgb Conc. 34.5 g/dL (33.0-37.0); Mean Corpuscular Volume 88.4 fL (80.0-94.0); Nucleated Red Blood Cells % 0 % (-); Platelet Count 332 10^3/uL (130-400); Red Cell Dist. Width 12.2 % (11.5-14.5)
[2025-05-23 14:00] VITALS: BP 121/64
[2025-05-23 14:14] LABS: ALT (SGPT) 38 U/L (0-50); AST (SGOT) 20 U/L (17-59); Albumin 4.0 g/dl (3.5-5.0); Alkaline Phosphatase 51 U/L (38-126); Blood Urea Nitrogen 19 mg/dl (9-20); Calcium 9.2 mg/dl (8.4-10.2); Carbon Dioxide 28 mmol/L (22-30); Chloride 92 mmol/L (98-107); Glucose 121 mg/dl (70-99); Potassium 3.8 mmol/L (3.5-5.1); Sodium 127 mmol/L (135-145); Total Protein 7.1 g/dl (6.3-8.2); eGFR > 60.00
--- NOTE | 2025-05-23 15:17 | HPS.HSE ---
Addendum entered and electronically signed by Ghazala Parks MD 05/23/25 16:28:
This is an addendum to H&P written by Renetta De Santiago on 05/23/2025. �Patient seen and examined independently with [employer].
64-year-old male past medical history of hypertension, hyperlipidemia, anxiety, Radford disease diagnosed 5 years ago, GERD, carotid artery stenosis status post recent carotid endarterectomy on the right on 05/11 presenting with headache starting
5 days after the surgery for which she was taking Fioricet. �Yesterday with left arm and left lower extremity weakness lasting 30 minutes as well as recurrent symptoms today and at lunchtime and now resolved again. �No current symptoms.
Vital signs normal. Normal physical exam apart from chronic chorea.�
Labs show sodium of 127 close to baseline.
CT head and neck shows no acute process. �There are postoperative changes of the right carotid endarterectomy without significant residual stenosis. �Noncalcified plaque of the left carotid bifurcation approximately 30% stenosis similar to
previously. �Numerous enlarged mediastinal lymph nodes persistent from previously.
Concern for TIA. �MRI to be deferred due to chorea as per neurology. �Continue aspirin and add Plavix. �Check A1c and lipid panel.
Original Note:
Family Physician
-
Family Physician: Shelly Willett
Chief Complaint
-
left sided weakness
History of Present Illness
64-year-old with past medical history for hypertension, hyperlipidemia, anxiety, GERD, and Radford disease presented to us with left-sided weakness since yesterday. Patient complained of headache since 5 days after surgery. He started taking
Aricept since yesterday. Patient left-sided weakness since yesterday. His left arm is more weaker than left lower extremity. It lasted for 20 minutes yesterday. Today while he was taking shower, he felt 'sided weakness which lasted for 30
minutes. Today around lunchtime he felt left arm weakness. he is not able to lift his arm up due to weakness. Patient denied any blurry vision, numbness, tingling. Patient denied any dizzy or syncope. Patient denied any chest pain or short of
breath. Patient denied any abdominal pain, nausea, vomiting or diarrhea. Patient denied dysuria hematuria.
Head neck CTA pending. Admitting for further management
Medical History
Past Medical History
Past Medical History: Reports Other
Additional Past Medical History:
Bilateral carotid stenosis, hypertension, hyperlipidemia, anxiety, Myriam disease
Past Surgical History: Reports Other
Additional Past Surgical History:
Left shoulder surgery, right CEA
Social History
Tobacco: Former Smoker
Alcohol: Occasional
Drug: None
Personal:
Living: With Family
Family History
Family History: Not pertinent
Allergies / Home Medications
Allergies reflects when Allergies were last updated in [facility].
Home Medications with original date entered in [facility]
Allergy/Medication List:
Allergies
Allergy/AdvReac Type Severity Reaction Status Date / Time
hydromorphone (From Dilaudid) Allergy Rash Verified 05/23/25 13:11
Home Medications
Vitamin C 1 dose PO DAILY Supplement 04/27/25
Vitamin D (with calcium) 1 dose PO DAILY Supplement 04/27/25
aspirin 81 mg tablet 81 mg PO HS Blood Clot Prevention/Tx 04/27/25
atorvastatin 40 mg tablet 40 mg PO HS High Cholesterol 04/27/25
buspirone 10 mg tablet 10 mg PO BID Mental Health/Anxiety 04/27/25
carvedilol 12.5 mg tablet 12.5 mg PO BID Heart Disease/Condition 04/27/25
omeprazole 20 mg tablet,delayed release 20 mg PO HS Gastrointestinal Issue 04/27/25
losartan 100 mg-hydrochlorothiazide 25 mg tablet 1 tab PO HS Blood Pressure 05/11/25
txdvnllbtj-bmdcqvjivooni-uraxywoe 50 mg-300 mg-40 mg capsule (Fioricet) 1 cap PO BIDPRN PRN headache #10 caps 05/17/25
Review of Systems
-
Constitutional: Reports No Symptoms
EENT: Reports No Symptoms
Respiratory: Reports No Symptoms
Cardiac: Reports No Symptoms
Abdomen/GI: Reports No Symptoms
: Reports No Symptoms
Musculoskeletal: Reports No Symptoms
Skin: Reports No Symptoms
Neurological: Reports Headache, Weakness (Left-sided weakness) and Other
Endocrine: Reports No Symptoms
Hematologic/Lymphatic: Reports No Symptoms
Psych: Reports No Symptoms
Physical Exam
Vital Signs
Vital Signs
Temp Pulse Resp BP Pulse Ox
98.4 F 66 24 121/64 97
05/23/25 13:06 05/23/25 14:30 05/23/25 14:30 05/23/25 14:00 05/23/25 14:30
Physical Exam
General: Well Developed, Well Nourished and No Apparent Distress
HEENT: NormoCephalic, Moist mucous membranes and Atraumatic
Respiratory: Clear
Cardiac: S1/S2 and Regular Rhythm; No Murmur or Rub
GI: Soft, Non Tender, Non Distended and Normal Bowel Sounds; No Organomegaly
Rectal: Deferred by Provider
Musculoskeletal: No Clubbing, No Cyanosis and No Edema
Skin: No Rash
Neuro: AO x 3 and Nonfocal/grossly intact
Psych: Calm
Laboratory Results
-
05/23/25 13:40
05/23/25 13:40
Laboratory Results
Total Bilirubin 0.4 mg/dl (0.2-1.3) 05/23/25 13:40
AST 20 U/L (17-59) 05/23/25 13:40
ALT 38 U/L (0-50) 05/23/25 13:40
Alkaline Phosphatase 51 U/L (38-126) 05/23/25 13:40
Data Reviewed
-
Lab Data: Labs Reviewed by me
Impression/Plan
-
# Left upper extremities and left lower extremities weakness rule out TIA
- Head and neck CTA CT Brain: No acute intracranial process. Specifically, no evidence of acute hemorrhage.CTA Head: No large vessel occlusion. No aneurysm.CTA Neck: Postoperative changes of right carotid endarterectomy without significant residual
stenosis. There is predominantly noncalcified plaque of the left carotid bifurcation with approximately 30% stenosis, similar to prior.There are numerous enlarged mediastinal lymph nodes which are persistent from prior examinations if her wish
lymphoproliferative disorder cannot be excluded.
- Neurology recommended to defer MRI at this time as patient not able to stay still in the MRI due o choreoathetoid movements
-asa continued
-plavix continued as per neuro and vascular.
-PT/OT consulted
-neuro following patient.
# Status post right CEA
- Aspirin continued
#chronic Hyponatremia
- Sodium 127
# History of Radford's disease
- Not on any medication
- Follows neurology as outpatient
# Essential hypertension
- Coreg continue with hold parameters
- Losartan continue with hold parameters
#Hyperlipidemia
- Atorvastatin continued
#Anxiety
- BuSpar continued
#GERD
- PPI continued
# DVT prophylaxis
- SCDs
# CODE STATUS
- Full code
[2025-05-23] MEDS: PLAVIX 75 MG PO (16:19)
--- NOTE | 2025-05-23 16:48 | EDCM ---
CM reviewed chart and met with pt and bedside in ED. Lives with and son in split level home, no THERESA, half bath on main level, bedroom and full bath on upper level.
Independent in ADLs, personal care and ambulation at baseline. Does not use assistive devices. Drives.
He does have DME in home from relatives: SPC, WC, RW, hospital bed.
Confirms prescription coverage. SALMON reviewed and signed, copy left with pt.
No hx VN or SNF.
PCP: Shelly Willett
Pharmacy: [address] [place] [address]
Anticipate discharge home, CM will continue to follow for all discharge planning needs.
[2025-05-23 18:17] VITALS: BP 159/91
[2025-05-23 19:22] VITALS: BP 152/74
--- NOTE | 2025-05-23 19:37 | CON.NEURO4 ---
Consultation - Neurology 4
-
CONSULTING PHYSICIAN: Dr. Wily Valadez
REFERRING PHYSICIAN: Dr. Brock Spencer
DICTATED BY: Dr. Wily Valadez
DATE/TIME OF REQUEST: 05/23/2025
DATE/TIME OF CONSULTATION: 05/23/2025
Reason for Consultation: left-sided weakness
ASSESSMENT AND PLAN:
The patient is a 64 years old male who recently had a right sided carotid endarterectomy performed about 12 days ago. The patient says for the last 2 days he has had episodes of dizziness and intermittent left arm weakness and he described these
episodes as' not being able to really use it well'. He also had some left leg weakness and difficulty with ambulation as per history. However, at this point the patient says that he does not have any left-sided weakness. Also his dizziness has
improved. Currently he is on a baby aspirin daily.
CT of the head did not show any acute intracranial abnormality.
CT of the head and neck showed postoperative changes of the right carotid endarterectomy without significant residual stenosis.
The patient has returned to his baseline at this time and he appears to have possibly had transient ischemic attack. He is status post right sided carotid endarterectomy performed about 12 days ago. The patient is on aspirin 81 mg daily and the
the plan is to add Plavix 75 mg daily. Also the patient will be on atorvastatin 40 mg daily. There is no need for MRI of the brain at this time as it will not change the management.
History of Present Illness:
The patient is a 64 years old male who recently had a right sided carotid endarterectomy performed about 12 days ago. The patient says for the last 2 days he has had episodes of dizziness and intermittent left arm weakness and he described these
episodes as' not being able to really use it well'. He also had some left leg weakness and difficulty with ambulation as per history. However, at this point the patient says that he does not have any left-sided weakness. Also his dizziness has
improved. Currently he is on a baby aspirin daily.
Past Medical History: Hypertension, hyperlipidemia, anxiety, Myriam's disease and GERD.
Review of Systems:
The patient denies headache, chest pain, shortness of breath, fever, chills, nausea and vomiting.
Neurologic Examination:
The patient is alert and oriented x 3,
Speech is clear,
The cranial nerves II to XII are grossly intact,
The motor strength is grossly normal bilaterally in the upper and lower extremities,
The sensations are grossly intact,
There was no limb ataxia seen.
Vital Signs and Labs
-
Vital Signs and Labs:
Vital Signs
Temp Pulse Resp BP Pulse Ox
36.4 C 73 18 159/91 97
05/23/25 18:17 05/23/25 18:17 05/23/25 18:17 05/23/25 18:17 05/23/25 18:17
Lab Results
05/23/25 13:40
05/23/25 13:40
Sodium 127 mmol/L (135-145) L 05/23/25 13:40
Potassium 3.8 mmol/L (3.5-5.1) 05/23/25 13:40
BUN 19 mg/dl (9-20) 05/23/25 13:40
Glucose 121 mg/dl (70-99) H 05/23/25 13:40
Calcium 9.2 mg/dl (8.4-10.2) 05/23/25 13:40
Medications
-
Active Medications
Generic Name Dose Route Start Last Admin
Trade Name Freq PRN Reason Stop Dose Admin
Acetaminophen 650 mg 05/23/25 18:20
Acetaminophen 650 Mg Rectal Suppository RECTAL 06/20/25 18:19
Q4HPRN PRN
CARREON, mild pain, or temp >100.4F
Acetaminophen 650 mg 05/23/25 18:20
Acetaminophen 325 Mg Tablet PO 06/20/25 18:19
Q4HPRN PRN
CARREON, mild pain, or temp >100.4F
Acetaminophen/Butalbital/Caffeine 1 tab 05/23/25 18:38
Butalbit/Acetaminophen/Caffeine PO 06/20/25 18:37
BIDPRN PRN
headache
Aspirin 81 mg 05/23/25 22:00
Aspirin 81 Mg (Enteric Coated) Tablet PO 06/20/25 21:59
HS OSIRIS
Atorvastatin Calcium 40 mg 05/23/25 22:00
Atorvastatin (Lipitor) 40 Mg Tablet PO 06/20/25 21:59
HS OSIRIS
Buspirone HCl 10 mg 05/23/25 20:00
Buspirone 10 Mg Tablet PO 06/20/25 19:59
BID OSIRIS
Carvedilol 12.5 mg 05/23/25 20:00
Carvedilol 12.5 Mg Tablet PO 06/20/25 19:59
BID OSIRIS
Clopidogrel Bisulfate 75 mg 05/24/25 08:00
Clopidogrel 75 Mg Tablet PO 06/21/25 07:59
DAILY OSIRIS
Losartan Potassium 25 mg 05/24/25 08:00
Losartan 25 Mg Tablet PO 06/21/25 07:59
DAILY OSIRIS
Pantoprazole Sodium 20 mg 05/23/25 22:00
Pantoprazole 20 Mg Delayed Release Tablet PO 06/20/25 21:59
HS OSIRIS
Home Medications
�Medication �Instructions �Recorded
aspirin 81 mg tablet 81 mg PO HS Blood Clot 04/27/25
Prevention/Tx
atorvastatin 40 mg tablet 40 mg PO HS High Cholesterol 04/27/25
buspirone 10 mg tablet 10 mg PO BID Mental Health/Anxiety 04/27/25
carvedilol 12.5 mg tablet 12.5 mg PO BID Heart 04/27/25
Disease/Condition
omeprazole 20 mg tablet,delayed 20 mg PO HS Gastrointestinal Issue 04/27/25
release
oncmzcprtd-glyhuwcecdygy-fusyundq 1 cap PO BIDPRN PRN headache #10 05/17/25
50 mg-300 mg-40 mg capsule caps
(Fioricet)
losartan 25 mg tablet 25 mg PO DAILY 05/23/25
[2025-05-23] MEDS: PROTONIX 20 MG PO (20:47)
[2025-05-23] MEDS: COREG 12.5 MG PO (20:47)
[2025-05-23] MEDS: LIPITOR 40 MG PO (20:47)
[2025-05-23] MEDS: ASPIR LOW (ENTERIC COATED) 81 MG PO (20:47)
[2025-05-23] MEDS: BUSPAR 10 MG PO (20:50)
[2025-05-23 23:22] VITALS: BP 126/57
[2025-05-24] VITALS (8 sets, daily range): BP systolic 117–157; BP diastolic 64–84; PULSE 78–80; O2SAT 98–99
[2025-05-24] MEDS: FIORICET 1 TAB PO (04:41)
--- NOTE | 2025-05-24 05:58 | W.PN.UPDATE ---
Update Note
Progress Note Update
~0420 pt with recent R carotid endarterectomy- TIA s/s involving the LUE- a 15 min episode where the patient stated he was having numbness, tingling and the inability to move his L arm- he could shrug his shoulder but was unable to lift his lower
arm and his grasp was very weak. Upon arrival to the floor pt was beginning to move his arm again- without any interventions and describes the return of sensation when tested. His grasp is still weak but returning. Pt could lift and hold his arm for
> 10 sec. This is the third episode of a similar fashion.
--- NOTE | 2025-05-24 06:36 | PTCARENOTE ---
Pt orginal sx returned. Pt unable to life left arm and complained of numbness and tingling down arm. ORIENTAL RUG REPAIRER notified. By the time the ORIENTAL RUG REPAIRER arrived to bedside sx had resolved except for slight numbness down he left arm. Numbness resolved about an hour
later. Will continue to monitor
[2025-05-24] MEDS: PLAVIX 75 MG PO (08:24)
[2025-05-24] MEDS: BUSPAR 10 MG PO ×2 (08:24→20:13)
[2025-05-24] MEDS: COREG 12.5 MG PO ×2 (08:25→20:12)
[2025-05-24] MEDS: COZAAR 25 MG PO (08:25)
[2025-05-24 08:36] LABS: Hematocrit 40.3 % (39.0-52.0); Hemoglobin 14.3 g/dL (13.0-18.0); Mean Corp Hgb Conc. 35.5 g/dL (33.0-37.0); Mean Corpuscular Volume 85.4 fL (80.0-94.0); Platelet Count 368 10^3/uL (130-400); Red Cell Dist. Width 12.1 % (11.5-14.5)
[2025-05-24 08:55] LABS: Blood Urea Nitrogen 17 mg/dl (9-20); Calcium 9.5 mg/dl (8.4-10.2); Carbon Dioxide 26 mmol/L (22-30); Chloride 96 mmol/L (98-107); Glucose 95 mg/dl (70-99); HDL Cholesterol 40 mg/dl; LDL Cholesterol, Calculated 116 mg/dl; Potassium 4.4 mmol/L (3.5-5.1); Sodium 129 mmol/L (135-145); Very Low Density Lipoprotein 20 mg/dl (0-30); eGFR > 60.00
--- NOTE | 2025-05-24 09:43 | PTOTSP ---
pt currently demonstrates ability to complete simple ADLs, functional transfers, ambulation with supervision to no assistance. pt reports no symptoms as he had upon arrival and no acute deficits noted. no acute OT needs identified at this time, will
sign off.
--- NOTE | 2025-05-24 11:16 | PTOTSP ---
Speech Therapy Evaluation:
Pt with chronic risk factors of dysphagia including GERD and Huntingtons Disease. Pt dx with TIA as imaging negative and weakness/neuro deficits have resolved. At bedside, pt tolerated PO trials without s/sx of aspiration. Pt without dysphagia hx,
WBC WNL, and pt on room air. Pt appears to be tolerating regular and thin liquid diet with no difficulties.
Recommend:
1. Regular solids and thin liquids
2. Medications as tolerated
3. General aspiration and reflux precautions
4. Partial assistance with PO intake
5. OPTICAL EFFECTS CAMERA OPERATOR to follow to monitor tolerance of diet, likely brief
--- NOTE | 2025-05-24 12:18 | CON.VAS ---
Medical History
-
Chief Complaint: L Sided TIA
History of Present Illness:
64M hx of R CEA for asymptomatic disease presents with 1-2 day hx of recurrent TIA with left sided arm weakness. Imaging thus far does not show any evidence of stroke. I reviewed the CTA of the neck which shows a widely patent ICA without stenosis
or thrombus or intimal flap
Past Medical History
Past Medical History: CAD, GERD and HTN
Past Surgical History: Other (R CEA)
Allergies / Home Medications
Allergy/AdvReac Type Severity Reaction Status Date / Time
hydromorphone (From Dilaudid) Allergy Rash Verified 05/23/25 13:11
�Medication �Instructions �Recorded �Confirmed �Type
aspirin 81 mg tablet 81 mg PO HS Blood Clot 04/27/25 05/23/25 History
Prevention/Tx
atorvastatin 40 mg tablet 40 mg PO HS High Cholesterol 04/27/25 05/23/25 History
buspirone 10 mg tablet 10 mg PO BID Mental Health/Anxiety 04/27/25 05/23/25 History
carvedilol 12.5 mg tablet 12.5 mg PO BID Heart 04/27/25 05/23/25 History
Disease/Condition
omeprazole 20 mg tablet,delayed 20 mg PO HS Gastrointestinal Issue 04/27/25 05/23/25 History
release
qqzwlppcqa-rzbqijgbwlxfe-ziojrufa 1 cap PO BIDPRN PRN headache #10 05/17/25 05/23/25 Rx
50 mg-300 mg-40 mg capsule caps
(Fioricet)
losartan 25 mg tablet 25 mg PO DAILY Blood Pressure 05/23/25 05/23/25 History
Physical Exam
Vital Signs
Temp Pulse Resp BP Pulse Ox
97.8 F 75 18 157/84 97
05/24/25 07:54 05/24/25 08:25 05/24/25 07:54 05/24/25 08:25 05/24/25 07:54
Lab Results
05/24/25 07:50
05/24/25 07:50
Physical Exam
General: Well Developed, Well Nourished and No Apparent Distress
HEENT: Normocephalic
Respiratory: Clear
Cardiac: S1/S2
GI: Soft
Skin: Warm
Neuro: Awake, AO x 3 and No Motor Deficits
Psych: Calm
Pulses: Bilateral Femoral: +2
Assessment / Plan
-
64M s.p R CEA now with TIA with left upper extremity weakness
-await further neuro recs
-c/w plavix 75mg daily
-no vascular intervention at this time
--- NOTE | 2025-05-24 14:19 | W.PN.HOSP.TC ---
Addendum entered and electronically signed by Nahun Camp MD 05/24/25 14:39:
Attending�addendum:
I saw and evaluated the patient. I reviewed the resident�s note and agree with findings and plan as documented in the resident�s note.��patient seen and examined at bedside, denies any chest pain or shortness of breath, no abdominal pain, no nausea,
no vomiting, no diarrhea or constipation.
Episode of left-sided weakness last night, neurology recommending MRI.
Physical�exam:
GENERAL : Patient is awake, alert, oriented x3
HEENT: Nonicteric sclerae, PERRLA, EOMI. Oropharynx clear. Moist mucous membranes. Conjunctivae appear well perfused.
CHEST: Chest wall is nontender.
HEART: Regular rate and rhythm without murmurs.
LUNGS: Clear to auscultation bilaterally.
ABDOMEN: Soft, positive bowel sounds, nontender, no organomegaly.
RECTAL: Deferred.
MUSCLES/EXTREMITIES: No abnormal range of motion, no swelling.SKIN: No rash, no excessive bruising, petechiae, or purpura.
NEUROLOGIC: Cranial nerves II-XII intact without motor/sensory deficit.
�
Assessment/plan:
Left-sided weakness, possible TIA.
Repeated event last night.
Neurology recommending dual antiplatelet with aspirin/Plavix/statin.
Will try to get MRI done tomorrow.
Patient with Bingham disease and repetitive movement.
Will give Ativan before MRI
CODE STATUS: Full code
DVT prophylaxis: SCDs
Diet: cardiac
Family communication: Discussed with at bedside
Disposition: try to get MRI in am.
�
Total time spent on today�s encounter was 51 minutes which included time spent in counseling the patient/family regarding diagnosis and treatment plan as listed above, goals of care, and symptom management. Case was discussed with nursing staff,
specialists, and care coordinators/case management. All labs and imaging personally reviewed by me. Remainder the time spent in detailed review of previous records, lab data, imaging, and other medical provider documentation.
Original Note:
Today's Communication/Plan
-
MRI tomorrow.
Assessment / Plan
Assessment / Plan
Mark Carr is a 64M w/ a PMHx of hypertension, hyperlipidemia, anxiety, GERD, Bingham's disease, and carotid artery stenosis with recent right CEA who presented with a 1 to 2-day history of recurrent neurologic symptoms characterized by
left upper and lower extremity weakness and numbness. CT imaging in the emergency department did not reveal any evidence of stroke. CTA of the neck shows a widely patent ICA without stenosis or thrombus or intimal flap. Patient was admitted for
further neurologic evaluation.
1. Focal Neurologic Deficit
- Likely TIA, less likely CVA or secondary to recent procedure/ROCIO
- Head/Neck CTA/CT Brain: No hemorrhage, no large vessel occlusion, no aneurysm, no stenosis of carotid arteries
- Repeat event last night; discussed with Neurology, will proceed with MRI
- Loaded w/ DAPT; continue for 21 days and transition to daily low dose ASA
- PT/OT
- Appreciate Neuro and Vascular Surg reccs
2. Asymptomatic ROCIO s/p R CEA
- Continue ASA
3. Chronic Hyponatremia
- NA 127 this a.m., stable
- Daily BMP
4, History of Bingham's Disease
- Currently not on medication
- Follows up with outpatient neurology
5. Essential HTN
- Continue home meds with hold parameters
6. Hyperlipidemia
-Continue atorvastatin
7. JOSSE
- Continue BuSpar
8. Postprocedural headache
-Continue Fioricet
CODE STATUS: Full
DVT PPx: SCDs
Diet: Cholesterol-lowering
Anticipated Discharge: Within 24 hours
Subjective/Interval History
-
Date of Service: May 24, 2025
Patient seen and examined this a.m. (late entry). Patient with no acute complaints this morning. Patient states that he had 1 episode of left upper extremity weakness, numbness, tingling last night. This episode remitted after approximately 30
minutes. Patient states that he has no lingering effects from this episode. Otherwise denies headache, dizziness.
Objective Data
-
Labs:
Laboratory Results
05/24/25
07:50
WBC 9.3
Hgb 14.3
Hct 40.3
Plt Count 368
Sodium 129 L
Potassium 4.4
Chloride 96 L
Carbon Dioxide 26
BUN 17
Creatinine 0.8
Glucose 95
Calcium 9.5
Vital Signs:
Vital Signs
Temp Pulse Resp BP Pulse Ox
98.3 F 67 18 117/69 92
05/24/25 11:27 05/24/25 11:27 05/24/25 11:27 05/24/25 11:27 05/24/25 11:27
Review of Systems
-
History Source: Patient
All other systems: Reviewed and negative
Physical Exam
-
General: Well Developed, Well Nourished, No Apparent Distress and Comfortable
HEENT: Normocephalic, Atraumatic and Moist Mucous Membranes
Respiratory: Clear to Auscultation
Cardiac: S1/S2
GI: Soft
Musculoskeletal: No Clubbing, No Cyanosis and No Edema
Skin: Warm
Neuro: Awake, Alert, Oriented and Other (5 out of 5 strength in all extremities, choreiform movements)
Psych: Calm
Data Reviewed
-
CT Scan: Image personally visualized and interpreted, Report Reviewed by me and Discussed with Patient
Labs: Labs Reviewed by me and Discussed with Patient
--- NOTE | 2025-05-24 16:32 | W.PN.NEURO.1 ---
Today's Communication / Plan
-
The patient is a 64 years old male who recently had a right sided carotid endarterectomy performed about 13 days ago. The patient says for the last 2 days [employer], he has had episodes of dizziness and intermittent left arm weakness and he described
these episodes as' not being able to really use it well'.
CT of the head did not show any acute intracranial abnormality.
CT of the head and neck showed postoperative changes of the right carotid endarterectomy without significant residual stenosis.
The patient has returned to his baseline at this time and he appears to have possibly had transient ischemic attack. He is status post right sided carotid endarterectomy performed about 12 days ago. The patient is on aspirin 81 mg daily and the
the plan is to add Plavix 75 mg daily. Also the patient will be on atorvastatin 40 mg daily.
Today morning at 4 AM the patient had an episode of left arm more than the left leg weakness however his symptoms resolved within about 20 minutes.
The plan is to get MRI of the brain without contrast and an echocardiogram.
Subjective/Objective
Subjective Data
Date of Service: May 24, 2025
The patient is a 64 years old male who recently had a right sided carotid endarterectomy performed about 13 days ago. The patient says for the last 2 days [employer], he has had episodes of dizziness and intermittent left arm weakness and he described
these episodes as' not being able to really use it well'. He also had some left leg weakness and difficulty with ambulation as per history. However, at this point the patient says that he does not have any left-sided weakness. Also his dizziness
has improved. Currently he is on a baby aspirin daily.
CT of the head did not show any acute intracranial abnormality.
CT of the head and neck showed postoperative changes of the right carotid endarterectomy without significant residual stenosis.
The patient has returned to his baseline at this time and he appears to have possibly had transient ischemic attack. He is status post right sided carotid endarterectomy performed about 12 days ago. The patient is on aspirin 81 mg daily and the
the plan is to add Plavix 75 mg daily. Also the patient will be on atorvastatin 40 mg daily.
Today morning at 4 AM the patient had an episode of left arm more than the left leg weakness however his symptoms resolved within about 20 minutes.
The plan is to get MRI of the brain without contrast.
Neurologic Examination:
The patient is alert and oriented x 3,
Speech is clear,
The cranial nerves II to XII are grossly intact,
The motor strength is grossly normal bilaterally in the upper and lower extremities,
The sensations are grossly intact,
There was no limb ataxia seen.
Objective Data
Vital Signs
Temp Pulse Resp BP Pulse Ox
36.6 C 71 18 136/76 96
05/24/25 15:05 05/24/25 15:05 05/24/25 15:05 05/24/25 15:05 05/24/25 15:05
Lab Results
05/24/25 07:50
05/24/25 07:50
Sodium 129 mmol/L (135-145) L 05/24/25 07:50
Potassium 4.4 mmol/L (3.5-5.1) 05/24/25 07:50
BUN 17 mg/dl (9-20) 05/24/25 07:50
Glucose 95 mg/dl (70-99) 05/24/25 07:50
Calcium 9.5 mg/dl (8.4-10.2) 05/24/25 07:50
LDL Cholesterol, Calc 116 mg/dl 05/24/25 07:50
Patient Allergies
hydromorphone (From Dilaudid) Allergy (Verified 05/23/25 13:11)
Rash
Vital Signs and Labs
-
Vital Signs and Labs:
Vital Signs
Temp Pulse Resp BP Pulse Ox
36.6 C 71 18 136/76 96
05/24/25 15:05 05/24/25 15:05 05/24/25 15:05 05/24/25 15:05 05/24/25 15:05
Lab Results
05/24/25 07:50
05/24/25 07:50
Sodium 129 mmol/L (135-145) L 05/24/25 07:50
Potassium 4.4 mmol/L (3.5-5.1) 05/24/25 07:50
BUN 17 mg/dl (9-20) 05/24/25 07:50
Glucose 95 mg/dl (70-99) 05/24/25 07:50
Calcium 9.5 mg/dl (8.4-10.2) 05/24/25 07:50
LDL Cholesterol, Calc 116 mg/dl 05/24/25 07:50
Medications
-
Active Medications
Generic Name Dose Route Start Last Admin
Trade Name Freq PRN Reason Stop Dose Admin
Acetaminophen 650 mg 05/23/25 18:20
Acetaminophen 650 Mg Rectal Suppository RECTAL 06/20/25 18:19
Q4HPRN PRN
CARREON, mild pain, or temp >100.4F
Acetaminophen 650 mg 05/23/25 18:20
Acetaminophen 325 Mg Tablet PO 06/20/25 18:19
Q4HPRN PRN
CARREON, mild pain, or temp >100.4F
Acetaminophen/Butalbital/Caffeine 1 tab 05/23/25 18:38 05/24/25 04:41
Butalbit/Acetaminophen/Caffeine PO 06/20/25 18:37 1 tab
BIDPRN PRN Administration
headache
Aspirin 81 mg 05/23/25 22:00 05/23/25 20:47
Aspirin 81 Mg (Enteric Coated) Tablet PO 06/20/25 21:59 81 mg
HS OSIRIS Administration
Atorvastatin Calcium 40 mg 05/23/25 22:00 05/23/25 20:47
Atorvastatin (Lipitor) 40 Mg Tablet PO 06/20/25 21:59 40 mg
HS OSIRIS Administration
Buspirone HCl 10 mg 05/23/25 20:00 05/24/25 08:24
Buspirone 10 Mg Tablet PO 06/20/25 19:59 10 mg
BID OSIRIS Administration
Carvedilol 12.5 mg 05/23/25 20:00 05/24/25 08:25
Carvedilol 12.5 Mg Tablet PO 06/20/25 19:59 12.5 mg
BID OSIRIS Administration
Clopidogrel Bisulfate 75 mg 05/24/25 08:00 05/24/25 08:24
Clopidogrel 75 Mg Tablet PO 06/21/25 07:59 75 mg
DAILY OSIRIS Administration
Lorazepam 1 mg 05/25/25 08:00
Lorazepam 1 Mg Tablet PO 05/25/25 08:01
ONCE ONE
Losartan Potassium 25 mg 05/24/25 08:00 05/24/25 08:25
Losartan 25 Mg Tablet PO 06/21/25 07:59 25 mg
DAILY OSIRIS Administration
Pantoprazole Sodium 20 mg 05/23/25 22:00 05/23/25 20:47
Pantoprazole 20 Mg Delayed Release Tablet PO 06/20/25 21:59 20 mg
HS OSIRIS Administration
Home Medications
�Medication �Instructions �Recorded
aspirin 81 mg tablet 81 mg PO HS Blood Clot 04/27/25
Prevention/Tx
atorvastatin 40 mg tablet 40 mg PO HS High Cholesterol 04/27/25
buspirone 10 mg tablet 10 mg PO BID Mental Health/Anxiety 04/27/25
carvedilol 12.5 mg tablet 12.5 mg PO BID Heart 04/27/25
Disease/Condition
omeprazole 20 mg tablet,delayed 20 mg PO HS Gastrointestinal Issue 04/27/25
release
tzobfazpgg-vzmcuylzslxdp-zscoggvy 1 cap PO BIDPRN PRN headache #10 05/17/25
50 mg-300 mg-40 mg capsule caps
(Fioricet)
losartan 25 mg tablet 25 mg PO DAILY Blood Pressure 05/23/25
[2025-05-24] MEDS: ASPIR LOW (ENTERIC COATED) 81 MG PO (21:13)
[2025-05-24] MEDS: PROTONIX 20 MG PO (21:13)
[2025-05-24] MEDS: LIPITOR 40 MG PO (21:13)
[2025-05-25 03:20] VITALS: BP 132/70
[2025-05-25 07:43] VITALS: BP 137/80
[2025-05-25] MEDS: PLAVIX 75 MG PO (08:44)
[2025-05-25] MEDS: BUSPAR 10 MG PO (08:44)
[2025-05-25] MEDS: COZAAR 25 MG PO (08:44)
[2025-05-25] MEDS: COREG 12.5 MG PO (08:45)
[2025-05-25 09:04] VITALS: BP 142/74; BP 151/66; BP 155/90; PULSE 75; PULSE 78; PULSE 95
--- NOTE | 2025-05-25 09:04 | W.PN.VS ---
Addendum entered and electronically signed by Liban Floyd III, MD 05/25/25 12:13:
This patient was seen and examined in collaboration with RINA Grace. I agree with the history and physical exam as well as the assessment and plan. I have the following additions:
CTA personally reviewed. The right carotid endarterectomy is widely patent with no abnormality. No dissection. No filling defects.
Await MRI and neurology follow-up
Signed:
Liban Floyd III, MD
Vascular Surgery
[facility]
Original Note:
Today's Communication / Plan
-
Patient seen and examined at bedside with Dr. Liban Floyd III, below plan reviewed with attending.
Assessment/Plan
-
Assessment: 64-year-old male status post right carotid endarterectomy on 05/11/[address] Liban Floyd III
Plan:
Appreciate neurology recommendations, MRI pending for today, CTA head and neck reviewed demonstrates widely patent right carotid enterectomy with no residual stenosis
Patient can continue to follow-up in our office, we will place appointment for roughly 1 month and discharge instructions
Subjective Data
-
Date of Service: May 25, 2025
Patient seen examined bedside, currently with no complaints. Did endorse intermittent headaches that he is describing as 'migraines, 'occurring over the past week prior to admitting. He states that it was pain that went from the back of his neck
radiating over the top of his head. He did notify our office and we did recommend at that time to seek ED evaluation. He also notes intermittent occurrence of left arm weakness, currently without headache or weakness.
Objective Data
-
Vital Signs
Temp Pulse Resp BP Pulse Ox
97.9 F 69 17 137/89 99
05/25/25 07:43 05/25/25 08:44 05/25/25 07:43 05/25/25 08:44 05/25/25 07:43
Intake and Output
05/24/25 05/25/25 05/26/25
05:59 06:59 06:59
Intake Total 240 / 240
Balance 240 / 240
Intake:
Oral fluids 240 / 240
Other:
Number of approximated MODERATE 2 2
amounts of urine
Calcium 9.5 mg/dl (8.4-10.2) 05/24/25 07:50
Total Bilirubin 0.4 mg/dl (0.2-1.3) 05/23/25 13:40
AST 20 U/L (17-59) 05/23/25 13:40
ALT 38 U/L (0-50) 05/23/25 13:40
Alkaline Phosphatase 51 U/L (38-126) 05/23/25 13:40
Total Protein 7.1 g/dl (6.3-8.2) 05/23/25 13:40
Albumin 4.0 g/dl (3.5-5.0) 05/23/25 13:40
Physical Exam
-
No apparent distress, resting bed comfortably
Right neck surgical incision clean, dry, and intact, suture line well-healed, no evidence of hematoma
No tachycardia
No dyspnea on room air
Moves bilateral upper extremities and lower extremities with equal strength, nonfocal neuroexam
[2025-05-25 09:45] LABS: Hematocrit 39.3 % (39.0-52.0); Hemoglobin 13.3 g/dL (13.0-18.0); Mean Corp Hgb Conc. 33.8 g/dL (33.0-37.0); Mean Corpuscular Volume 86.6 fL (80.0-94.0); Platelet Count 363 10^3/uL (130-400); Red Cell Dist. Width 12.5 % (11.5-14.5)
[2025-05-25 10:24] LABS: Blood Urea Nitrogen 18 mg/dl (9-20); Calcium 9.2 mg/dl (8.4-10.2); Carbon Dioxide 27 mmol/L (22-30); Chloride 96 mmol/L (98-107); Glucose 140 mg/dl (70-99); Potassium 4.1 mmol/L (3.5-5.1); Sodium 130 mmol/L (135-145); eGFR > 60.00
[2025-05-25 11:22] VITALS: BP 126/69
--- NOTE | 2025-05-25 12:51 | W.PN.HOSP.TC ---
Today's Communication/Plan
-
MRI and TTE w/ bubble study today
Assessment / Plan
Assessment / Plan
Mark Carr is a 64M w/ a PMHx of hypertension, hyperlipidemia, anxiety, GERD, Zullinger's disease, and carotid artery stenosis with recent right CEA who presented with a 1 to 2-day history of recurrent neurologic symptoms characterized by
left upper and lower extremity weakness and numbness. CT imaging in the emergency department did not reveal any evidence of stroke. CTA of the neck shows a widely patent ICA without stenosis or thrombus or intimal flap. Patient was admitted for
further neurologic evaluation.
1. Focal Neurologic Deficit
- Likely TIA, less likely CVA or secondary to recent procedure/ROCIO
- Head/Neck CTA/CT Brain (05/23): No hemorrhage, no large vessel occlusion, no aneurysm, no stenosis of carotid arteries
- Repeat event last night; discussed with Neurology, will proceed with MRI
- Loaded w/ DAPT; continue for 21 days and transition to daily low dose ASA
- PT/OT/SP: regular solid/thin liquids, general aspiration/reflux precautions, partial assistance with PO
- PT/OT/SP: sign off from PT/OT
- Appreciate Neuro and Vascular Surg reccs
- MRI pending
- TTE with Bubble Study pending
2. Asymptomatic ROCIO s/p R CEA
- Continue ASA
3. Chronic Hyponatremia
- NA 130 this a.m., stable
- Daily BMP
4, History of Zullinger's Disease
- Currently not on medication
- Follows up with outpatient neurology
5. Essential HTN
- Continue home meds with hold parameters
6. Hyperlipidemia
-Continue atorvastatin
7. JOSSE
- Continue BuSpar
8. Postprocedural headache
-Continue Fioricet
CODE STATUS: Full
DVT PPx: SCDs
Diet: Cholesterol-lowering
Anticipated Discharge: Within 24 hours
Subjective/Interval History
-
Date of Service: May 25, 2025
No acute complaints this AM.
Denies any overnight events neurologically.
Objective Data
-
Labs:
Laboratory Results
05/25/25
09:11
WBC 9.7
Hgb 13.3
Hct 39.3
Plt Count 363
Sodium 130 L
Potassium 4.1
Chloride 96 L
Carbon Dioxide 27
BUN 18
Creatinine 0.8
Glucose 140 H
Calcium 9.2
Vital Signs:
Vital Signs
Temp Pulse Resp BP Pulse Ox
98.0 F 64 16 126/69 97
05/25/25 11:22 05/25/25 11:22 05/25/25 11:22 05/25/25 11:22 05/25/25 11:22
I&O
05/24/25 05/25/25 05/26/25
05:59 06:59 06:59
Intake Total 240 / 240
Balance 240 / 240
Review of Systems
-
History Source: Patient
All other systems: Reviewed and negative
Physical Exam
-
General: Well Developed, Well Nourished, No Apparent Distress and Comfortable
HEENT: Normocephalic and Atraumatic
Respiratory: Clear to Auscultation and Non Labored Respirations
Cardiac: Regular Rhythm and S1/S2
Musculoskeletal: No Clubbing, No Cyanosis and No Edema
Skin: Warm
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
Psych: Calm
Data Reviewed
-
Labs: Labs Reviewed by me and Discussed with Patient
[2025-05-25] MEDS: ATIVAN 1 MG PO (12:59)
[2025-05-25 15:42] VITALS: BP 131/75
[2025-05-25] MEDS: LIPITOR 80 MG PO (17:25)
--- NOTE | 2025-05-25 18:13 | W.PN.UPDATE ---
Update Note
Progress Note Update
Patient's MRI was negative for any acute abnormalities. Patient's only pending study was ECHO w/ saline agitation which logistically could not be performed until tomorrow. Patient prefers to go home and do the study outpatient. I reached out to "Meng"Remi who endorsed that ECHO w/ bubble has limited utility in patients over the age of 60, and discharge is okay from a neurology perspective on these grounds. Patient will follow up with his PCP and neurologist and will decide upon future ECHO
study under shared-decision making. Otherwise patient to be discharged on 3 months DAPT in the setting of recent CEA.
--- NOTE | 2025-05-25 18:18 | W.DCSUMMARY ---
Discharge Summary
Discharge Data
Date of Admission: 05/23/25
Date of Discharge: 05/25/25
Total time spent discharging patient (in min): 55
-
Pending Results: No
Hospital Course
Mark Carr is a 64 year old male with a past medical history of hypertension, hyperlipidemia, anxiety, GERD, Chester's chorea and carotid artery stenosis with recent right carotid endarterectomy 2 weeks prior to presentation who presented
to the emergency department with a 2-day history of recurrent neurologic symptoms characterized by left upper and left lower extremity weakness and numbness. Patient stated that these episodes would last 30 minutes at a time and would mostly remit,
but on occasion would notice some lingering weakness in the left upper extremity.
ED COURSE
Laboratory studies were unremarkable other than chronic hyponatremia.
CT angiography of the head and neck did not reveal any acute intracranial processes, hemorrhage, large vessel occlusion, or aneurysm. Postoperative changes of the right carotid endarterectomy were without significant residual stenosis.
Incidental finding included numerous enlarged mediastinal lymph nodes which are persistent from prior examinations which should be followed up on an outpatient basis.
HOSPITAL COURSE
The patient was admitted for neurologic evaluation. Initial recommendations by the neurologist included starting the patient on dual antiplatelet therapy, and continuation of the patient's atorvastatin and blood pressure control. Initially, in the
setting of resolution of symptoms and the patient's baseline choreiform movements, MRI was seen to be as having limited utility. Overnight, the patient had 1 more episode of the above symptoms, which lasted approximately 30 minutes, and then
subsided. The next morning, it was decided that the patient should undergo evaluation with MRI and TTE with bubble study. MRI of the head was largely unremarkable and negative for acute abnormalities. The patient awaited TTE with bubble study but
wanted to return home. Per neurology, the TTE has limited utility in a patient over the age of 6060 years old. The patient was discharged home on 05/25/2025.
DISCHARGE RECOMMENDATIONS
Follow Up With Primary Care Provider for Transition of Care Visit
Follow Up With Outpatient Neurologist for Additional Recommendations and Discussion of Potential TTE with Bubble Study
Follow Up With the Vascular Surgeon for evaluation in the setting of post-carotid artery endarterectomy.
Patient was started on 3 months of dual-antiplatelet therapy in the setting of recent carotid artery endarterectomy.
Patient was given a 1 month supply of Plavix, with refills to be provided by primary care provider.
Patient was advised to hold Omeprazole and started on Pantoprazole in the setting of new Plavix.
Follow a low cholesterol diet.
Discharge Plan
-
Patient Disposition: Home (Routine Discharge)
Discharge Diagnosis/Procedures: *Transient Ischemic Attacks
*Headaches
History of Carotid Artery Stenosis with Recent Carotid Endarterectomy
History of Chronic Hyponatremia
History of Chester Disease
History of Essential Hypertension
History of Hyperlipidemia
History of Generalized Anxiety Disorder
Condition: Fair
Diet: Low Cholesterol
Activity: With assistance and As tolerated
Others Tests: Consider TTE with Bubble Study after shared-decision making with your neurologist/primary care provider.
Referrals:
Lexie Penn PA-C [Specified Professional Personl, Vascular Surgery] - 06/15/25 11:00 am
Referral Note: Vascular surgery follow-up
Shelly Willett DO [Family Provider, Internal Medicine] - in less than 1 week
Prescriptions:
New
clopidogrel 75 mg Tablet
75 mg PO DAILY 30 Days Qty: 30 0RF
pantoprazole 20 mg tablet,delayed release (DR/EC)
20 mg PO HS Qty: 30 0RF
Continued
atorvastatin 40 mg Tablet
40 mg PO HS
carvedilol 12.5 mg Tablet
12.5 mg PO BID
buspirone 10 mg Tablet
10 mg PO BID
aspirin 81 mg Tablet
81 mg PO HS
vfnujcjiai-ahrkaaeaenkmj-tanw [Fioricet] 50-300-40 mg capsule
1 cap PO BIDPRN PRN (Reason: headache) Qty: 10 0RF
losartan 25 mg Tablet
25 mg PO DAILY
Held
omeprazole 20 mg Tablet,Delayed Release (Dr/Ec)
20 mg PO HS
Hold Instructions: May interact with Plavix. Consult your primary care provider for other as needed options.
Discharge Orders:
Discharge Patient (As Directed); Ordered 05/25/25
Ordered By: Gareth eCja
Discharge Date and Time
Print Language: COLOMBIAN
== END 2025-05-25 18:29 | disposition home or self-care (01) ==
LOC: 4 WEST ACU 16:17
PROVIDERS: Registered Nurse; ADMITTING PHYSICIAN Hospitalist; ATTENDING PHYSICIAN Internal Medicine; CONSULT PHYSICIAN Psychiatry & Neurology Neurology; EMERGENCY PHYSICIAN Emergency Medicine; FAMILY PHYSICIAN Internal Medicine; OTHER PHYSICIAN Surgery Vascular Surgery
DX: G45.9 Transient cerebral ischemic attack, unspecified (principal); R42 Dizziness and giddiness; R51.9 Headache, unspecified; R29.818 Other symptoms and signs involving the nervous system; R26.2 Difficulty in walking, not elsewhere classified; R00.1 Bradycardia, unspecified; R53.1 Weakness; G10 Huntington's disease; I25.10 Atherosclerotic heart disease of native coronary artery without angina pectoris; E78.00 Pure hypercholesterolemia, unspecified; I10 Essential (primary) hypertension; F41.1 Generalized anxiety disorder; K21.9 Gastro-esophageal reflux disease without esophagitis; R59.0 Localized enlarged lymph nodes; E87.1 Hypo-osmolality and hyponatremia; Z79.899 Other long term (current) drug therapy; Z79.82 Long term (current) use of aspirin; Z88.5 Allergy status to narcotic agent; Z87.891 Personal history of nicotine dependence; Z98.890 Other specified postprocedural states
CPT/HCPCS: 70496; 70498; 70551; 80048; 80053; 80061; 85025; 85027; 92526; 92610; 93005; 97162; 97165; 99285; G0378; Q9967